=== PATIENT | female | born 1990 | race Caucasian/White ===

== ENCOUNTER 2016-10-09 12:31 | Inpatient (IN) | payer OTHER ==
[2016-10-09 13:58] LABS: Urine Bilirubin Negative (Negative); Urine Glucose Negative (Negative); Urine Nitrite Negative (Negative)
[2016-10-09 14:03] LABS: Hematocrit 43 % (35-47); Hemoglobin 14.2 g/dl (12.0-16.0); Mean Corpuscular HGB Conc 33 g/dl (31-36); Mean Corpuscular Hemoglobin 31 pg (27-31); Mean Corpuscular Volume 93 fL (80-97); Mean Platelet Volume 12 um3 (7.4-10.4); Red Cell Distribution Width 13 % (10.5-15); White Blood Count 5.4 10^3/ul (3.5-10.8)
[2016-10-09 14:17] LABS: Benzodiazepine Urine Screen None Detected (None Detect)
[2016-10-09 14:18] LABS: ALT 7 U/L (7-52); AST 19 U/L (13-39); Albumin 4.1 g/dL (3.2-5.2); Alkaline Phosphatase 33 U/L (34-104); Anion Gap 4 mmol/L (2-11); BUN/Creatinine Ratio 6.5 (8-20); Blood Urea Nitrogen 5 mg/dL (6-24); CO2 Carbon Dioxide 28 mmol/L (22-32); Calcium 8.9 mg/dL (8.6-10.3); Chloride 106 mmol/L (101-111); EGFR African American 115.6 (>60); EGFR Non-African American 89.9 (>60); Globulin 2.7 g/dL (2-4); Glucose 91 mg/dL (70-100); Potassium 4.1 mmol/L (3.5-5.0); Sodium 138 mmol/L (133-145); Total Protein 6.8 g/dL (6.4-8.9)
--- NOTE | 2016-10-09 14:26 | ED ---
Psychiatric Complaint - HPI Summary HPI Summary: Patient presents to ED with CC of SI and depression x 2 weeks. Hx of depression. She is followed closely by psychiatrist at [facility]. She currently take Latuda 120mg, gabapentin 300mg, Seroquil and Depakote 1000mg. She has had these symptoms before but last 2 weeks worse. Denies HI or self harm. Denies ETOH, drug use or smoking. - History Of Current Complaint Chief Complaint: [facility]entalHealth Time Seen by Provider: 10/09/16 12:46 Hx Obtained From: Patient ?: No Onset/Duration: Gradual Onset Timing: Constant Severity Initially: Moderate Severity Currently: Moderate Character: Depressed Associated Signs And Symptoms: Positive: Social Withdrawal, Social Isolation Has Suicidal: Reports: Thoughts - Risk Factor(s) Completed Suicide Risk Factors: Negative - Allergies/Home Medications Allergies/Adverse Reactions: Allergies Allergy/AdvReac Type Severity Reaction Status Date / Time Codeine Allergy Insomnia Verified 10/09/16 13:12 Oxycodone Allergy Insomnia Verified 10/09/16 13:12 Home Medications: Home Medications Lurasidone (NF) [Latuda (NF)] 120 mg PO BEDTIME 10/09/16 [History Confirmed ] PMH/Surg Hx/FS Hx/Imm Hx Previously Healthy: Yes Respiratory History: Reports: Hx Asthma - mild, occasional Psychiatric History: Reports: Hx Anxiety, Hx Depression, Hx Post Traumatic Stress Disorder, Hx Inpatient Treatment, Hx Community [facility] - [facility] , Hx Bipolar Disorder Denies: Hx Eating Disorder, Hx of Violent Episodes Against Others - Immunization History Date of Tetanus Vaccine: Up to date Date of Influenza Vaccine: Unknown Hx Pertussis Vaccination: No Immunizations Up to Date: Unable to Obtain/Confirm Infectious Disease History: No Infectious Disease History: Denies: Traveled Outside the US in Last 30 Days - Family History Known Family History: Positive: Other - Depression - Social History Occupation: Employed Full-time Lives: With Family Alcohol Use: Weekly Alcohol Amount: 8 drinks/weekend Hx Substance Use: No Substance Use Type: Reports: None Hx Tobacco Use: Yes Smoking Status (MU): Never Smoked Tobacco Type: Cigarettes Review of Systems Constitutional: Negative Eyes: Negative Cardiovascular: Negative Respiratory: Negative Positive: no symptoms reported, see HPI Musculoskeletal: Negative Skin: Negative Positive: Anxious, Depressed All Other Systems Reviewed And Are Negative: Yes Physical Exam Triage Information Reviewed: Yes Vital Signs On Initial Exam: Initial Vitals Temp Pulse Resp BP Pulse Ox 99.0 F 75 16 112/71 99 10/09/16 12:42 10/09/16 12:42 10/09/16 12:42 10/09/16 12:42 10/09/16 12:42 Vital Signs Reviewed: Yes Appearance: Positive: Well-Appearing, Well-Nourished Skin: Positive: Warm, Skin Color Reflects Adequate Perfusion Head/Face: Positive: Normal Head/Face Inspection Eyes: Positive: EOMI, GIULIANA, Conjunctiva Clear Neck: Positive: Supple, No Lymphadenopathy Respiratory/Lung Sounds: Positive: Clear to Auscultation, Breath Sounds Present Cardiovascular: Positive: Normal, RRR, Pulses are Symmetrical in both Upper and Lower Extremities Musculoskeletal: Positive: Strength/ROM Intact Neurological: Positive: Sensory/Motor Intact, Alert, Oriented to Person Place, Time, Speech Normal Psychiatric: Positive: Affect/Mood Appropriate, Anxious, Depressed AVPU Assessment: Alert - Murphy Coma Scale Coma Scale Total: 15 Diagnostics - Vital Signs Vital Signs Temp Pulse Resp BP Pulse Ox 10/09/16 13:11 99 F 16 112/71 98 10/09/16 12:42 99.0 F 16 112/71 99 - Laboratory Lab Results: Lab Results 10/09/16 10/09/16 Range/Units 13:39 13:55 WBC 5.4 (3.5-10.8) 10^3/ul RBC 4.60 (4.0-5.4) 10^6/ul Hgb 14.2 (12.0-16.0) g/dl Hct 43 (35-47) % MCV 93 (80-97) fL MCH 31 (27-31) pg MCHC 33 (31-36) g/dl RDW 13 (10.5-15) % Plt Count 142 L (150-450) 10^3/ul MPV 12 H (7.4-10.4) um3 Neut % (Auto) 57.8 (38-83) % Lymph % (Auto) 29.1 (25-47) % Archer % (Auto) 10.0 H (1-9) % Eos % (Auto) 2.5 (0-6) % Baso % (Auto) 0.6 (0-2) % Absolute Neuts (auto) 3.1 (1.5-7.7) 10^3/ul Absolute Lymphs (auto) 1.6 (1.0-4.8) 10^3/ul Absolute Monos (auto) 0.5 (0-0.8) 10^3/ul Absolute Eos (auto) 0.1 (0-0.6) 10^3/ul Absolute Basos (auto) 0 (0-0.2) 10^3/ul Absolute Nucleated RBC 0.01 10^3/ul Nucleated RBC % 0.1 Urine Color Yellow Urine Appearance Clear Urine pH 6.0 (5-9) Ur Specific [place] 1.012 (1.010-1.030) Urine Protein Negative (Negative) Urine Ketones Trace H (Negative) Urine Blood Negative (Negative) Urine Nitrate Negative (Negative) Urine Bilirubin Negative (Negative) Urine Urobilinogen Negative (Negative) Ur Leukocyte Esterase Negative (Negative) Urine Glucose Negative (Negative) Result Diagrams: 10/09/16 13:55 10/09/16 13:55 Lab Statement: Any lab studies that have been ordered have been reviewed, and results considered in the medical decision making process. Course/Dx - Course Course Of Treatment: Suicidal ideations with no plan. Patient denies drug use, ETOH or physical pain. OK for MHU - Differential Dx/Clinical Impression Differential Diagnosis/HQI/PQRI: Positive: Depression, Suicide Attempt, Suicidal Ideation, Suicidal Gesture Provider Diagnosis: Suicidal ideation, Depressed Discharge - Discharge Plan Condition: Stable Disposition: OTHER Discharge Disposition Comment: MHU evaluation. signed off at 2:45pm
[2016-10-09 14:42] LABS: Acetaminophen < 15 mcg/mL; Alcohol < 10 mg/dL (<10); Salicylate < 2.50 mg/dL (<30)
[2016-10-09 14:50] LABS: TSH (Thyroid Stimulating Horm) 0.86 mcIU/mL (0.34-5.60)
[2016-10-09] MEDS ORDERED: Acetaminophen TAB* 325 MG PO PRN (15:54)
[2016-10-09] MEDS ORDERED: Al Hydrox/Mg Hydrox/Simet LIQ* 30 ML UDC PO PRN (15:54)
[2016-10-09] MEDS: Gabapentin CAP(*) 300 MG PO SCH (20:54)
[2016-10-09] MEDS ORDERED: LURASIDONE 120 MG PO SCH (23:00)
[2016-10-10 08:20] LABS: Cholesterol 145 mg/dL; HDL Cholesterol 48.9 mg/dL; LDL Cholesterol 75 mg/dL; Triglycerides 104 mg/dL
[2016-10-10] MEDS: Gabapentin CAP(*) 300 MG PO SCH ×2 (09:17→21:01)
--- NOTE | 2016-10-10 13:36 | PN ---
MHU: Group Therapy Note - Service Type Service Type: 26265 Group Psychotherapy - Cognitive Behavioral Group Therapy ( CBT):Patient was attentive and participatory in CBT programming this morning, and remained in good behavioral control. Patient expressed positive insights regarding relevant treatment interventions and goals.
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
[2016-10-10] MEDS: LURASIDONE 20 MG PO SCH (17:13)
[2016-10-10] MEDS: CMC:Lurasidone (NF) 40 MG TAB PO SCH (17:13)
[2016-10-10] MEDS ORDERED: QUEtiapine TAB* 25 MG PO SCH (21:00)
[2016-10-10] MEDS: Divalproex ER TAB(*) 500 MG PO SCH ×2 (21:02)
[2016-10-11] MEDS: Gabapentin CAP(*) 300 MG PO SCH ×2 (08:10→20:16)
[2016-10-11] MEDS: CMC:Lurasidone (NF) 40 MG TAB PO SCH (08:11)
[2016-10-11] MEDS: LURASIDONE 20 MG PO SCH (08:11)
[2016-10-11] MEDS ORDERED: hydrOXYzine HCL TAB* 25 MG PO PRN (11:24)
--- NOTE | 2016-10-11 11:26 | PN ---
MHU: Group Therapy Note - Service Type Service Type: 30649 Group Psychotherapy - Cognitive Behavioral Group Therapy ( CBT):Patient was attentive and participatory in CBT programming this morning, and remained in good behavioral control. Patient expressed positive insights regarding relevant treatment interventions and goals. She is looking forward to discharge tomorrow, and describes feeling somewhat lethargic secondary to medicaitons.
[2016-10-11] MEDS ORDERED: QUEtiapine TAB* 25 MG PO PRN (11:27)
--- NOTE | 2016-10-11 12:59 | PN ---
Subjective - Subjective Subjective: Kayy reports she is "Tired and my heart is racing." She has been medication adherent and participating in groups. She reports sleeping "too much" last night, up to 12 hours. She reports her thoughts are "bland... nothing negative. " She had Latuda this morning with breakfast. She reports desire to nap but does not want to be dismissive of scheduled groups. She asks to be awakened for meals. She denies SI, endorses fatigue and decreased energy. Endorses anxiety/agitation. Objective - Appearance Appearance: Well Developed/Nourished Dysmorphic Features: Yes Hygiene: Normal Grooming: Well Kept - Behavior Psychomotor Activities: Abnormal-Decreased Exhibits Abnormal Movement: Yes - Attitude and Relatedness Attitude and Relatedness: Cooperative Eye Contact: Good - Speech Quality: Unpressured Latencies: Normal Quantity: Appropriate - Mood Patient's Decription of Mood: "Okay" - Affect Observed Affect: Depressed Affect Consistent with: Dysphoria - Thought Process Patient's Thought Process: Coherent, Incoherent Thought Content: No Passive Wish, No Suicidal Planning, No Homicidal Ideation, No Paranoid Ideation - Sensorium Experiencing Hallucinations: No, Sensorium is Clear Type of Hallucinations: Visual: No, Auditory: No, Command: No - Level of Consciousness Orientation: Yes Intact, Yes Orientated to Time, Yes Orientated to Place, Yes Orientated to Person - Impulse Control Impulse Control: Intact - Insight and Judgement Insight and Judgement: Good - Group Participation Particating in Group Activities: Yes - Medication Management Medication Management Adherence: Yes Assessment - Assessment Merits Inpatient Hospitalization: For Immediate Safety, For Stabilization, For Discharge Planning Clinical Impression: Kayy is a 26yo female with bipolar disorder. She typically presents in a manic state but is currently endorsing mixed or depressed state. She merits hospitalization for safety and stabalization. Discharge planning to include outpatient providers and Kayy's boyfriend, with whom she lives. Plan - Plan Treatment Plan: Name: KAYY MARTÍNEZ Birthdate: 1990 [id number] I would like to get another valproic acid level in the morning, as she had not had her dose when tested most recently. Will continue supportive milieu and psychoeducational groups. Will monitor for mood and thought content. Decrease observation to q30 minutes and allow daily staff pass. Will decrease latuda dose and encourage evening administration. Will add hydroxyzine for agitation/ anxiety and change quetiapine to prn to decrease hypersomnia. Her affect brightens when discussing potential for discharge tomorrow after meeting with boyfriend. Continued Medication Management: Consider Medication Medications: Current Medications Acetaminophen (Tylenol Tab*) 650 mg PO Q4H PRN PRN Reason: for pain; or Temp >101 F Last Admin: 10/10/16 19:39 Dose: 650 mg Al Hydrox/Mg Hydrox/Simethicone (Maalox Plus*) 30 ml PO Q4H PRN PRN Reason: INDIGESTION Divalproex Sodium (Depakote Er Tab(*)) 1,000 mg PO 2100 MAURI Last Admin: 10/10/16 21:02 Dose: 1,000 mg Gabapentin (Neurontin Cap(*)) 300 mg PO BID MAURI Last Admin: 10/11/16 08:10 Dose: 300 mg Hydroxyzine HCl (Atarax Tab*) 25 mg PO Q6H PRN PRN Reason: AGITATION/ANXIETY Lurasidone HCl (Latuda (Nf)) 80 mg PO 1700 MAURI Quetiapine Fumarate (Seroquel Tab*) 12.5 mg PO BEDTIME PRN PRN Reason: INSOMNIA - Discharge Plan Discharge Plan: Outpatient Follow Up Outpatient Program: Counseling/Psych Services at [facility]
[2016-10-11] MEDS: Divalproex ER TAB(*) 500 MG PO SCH (20:16)
[2016-10-12] MEDS: Gabapentin CAP(*) 300 MG PO SCH (07:37)
[2016-10-12 07:46] VITALS: BP 109/68
--- NOTE | 2016-10-12 12:02 | DS ---
DISCHARGE SUMMARY: DATE OF ADMISSION: 10/09/16 DATE OF DISCHARGE: 10/12/16 SUPERVISING PSYCHIATRIST: Dr. Arie Webb * (DICTATED BY GRAYSON STEWART NP) DISCHARGE DIAGNOSES: [place] I: Bipolar I disorder, most recent episode depressed and posttraumatic stress disorder. [place] II: Deferred. [place] III: No active medical problem. [place] IV: Mild stressors related to chronic mental illness and pressures of graduate studies. [place] V: 55. CONDITION AT THE TIME OF DISCHARGE: Improved. Makenzie reports she is "less anxious and more energetic." She is looking forward to structuring her downtime over the weekend. She has made a calendar schedule for her day today. She is looking for books to read for pleasure. She plans on going to yoga class and spend time with her partner, [place]. 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 Makenzie denies depressed mood. She denies suicidal ideation. She denies low energy and denies hypomania. She is notified that her valproic acid level this morning was 0.9 and that this is in therapeutic range. She requests that her new prescriptions be sent to [facility], [facility]. MENTAL STATUS EXAM: Makenzie is well groomed, wearing casual workout clothing. She is pleasant and cooperative. She is talkative and answers questions fully in a calm manner. She is alert and oriented x3. She has a bright affect and good eye contact. Her speech is soft and articulate and concentration is good. Her memory is 3/3. Mood is "a little nervous." Thought process is logical, coherent, goal- directed. Thought content is negative for SI or HI. She denies AH or VH. She denies rituals, obsessions, or delusions. Her insight is good, her judgment is good, and fund of knowledge is excellent. DISCHARGE INSTRUCTIONS: Given to the patient. MEDICATIONS: Are as follows: 1. Gabapentin 300 mg p.o. b.i.d. 2. Depakote ER 1000mg p.o. qhs 3. Latuda 80 mg p.o daily with dinner. 4. Quetiapine 12.5 mg p.o. at bedtime p.r.n. insomnia. DIET: Regular. ACTIVITY: Ambulation as tolerated. Tobacco cessation is not applicable as client does not smoke or use tobacco products. There are no pending labs or diagnostic studies at the time of discharge. HOSPITAL COURSE: A. Reason for admission: The patient was brought to the emergency room by her boyfriend after being seen by her outpatient therapist at [facility]. She reported increased depressed mood over the past 2 weeks with suicidal ideation with plan and intent. She was admitted on voluntary status for emergency safety and stabilization. B. Psychiatric treatment rendered: Makenzie was admitted to the behavioral health unit on voluntary status. She was full code status. She was placed on 15-minute checks for safety. She participated in supportive milieu, individual staff sessions, and psychoeducation groups. She was given med education in relation to her prescription for Latuda in that she needs to take this with at least 350 calories in order for 100% efficacy. She took a dose during the daytime and this caused excessive daytime sedation, her next dose will be this evening at dinner. The dose was titrated down from 120 mg to 80 mg. All other outpatient medications were unchanged. Makenzie was safe on all checks and denies suicidal ideation. She presents as euthymic and appears ready for discharge. She is forward thinking. cyber ops planner myself, her boyfriend, and the patient met prior to her leaving the unit to consolidate safe discharge planning and safety monitoring over the weekend. Makenzie has a history of hospitalizations and evidence of seeking outpatient and inpatient resources as needed for her safety and general mental health. GRAYSON STEWART NP [id number]/[facility] #: [id number] [facility]
[2016-10-12] MEDS ORDERED: CMCS: Lurasidone (NF) 40 MG TAB PO SCH (17:00)
== END 2016-10-12 12:35 | disposition home or self-care (01) | DRG 885 ==
LOC: ED 12:31 → BSU 15:54
PROVIDERS: ADMIT Psychiatry & Neurology Psychiatry; ATTEND Psychiatry & Neurology Psychiatry
PROC: GZHZZZZ Group Psychotherapy (ICD-10-PCS; principal; 2016-10-10)
DX: F31.9 Bipolar disorder, unspecified (principal); R45.851 Suicidal ideations; J45.909 Unspecified asthma, uncomplicated; F43.10 Post-traumatic stress disorder, unspecified; F41.9 Anxiety disorder, unspecified; R40.2412 Glasgow coma scale score 13-15, at arrival to emergency department; Z91.410 Personal history of adult physical and sexual abuse; Z88.5 Allergy status to narcotic agent; Z81.8 Family history of other mental and behavioral disorders; Z72.89 Other problems related to lifestyle
CPT/HCPCS: 36415; 80053; 80061; 80164; 80307; 80320; 80329; 81003; 83036; 84443; 84702; 85025; 90853; 99222; 99231; 99238; A9270-GY; G0480

== ENCOUNTER 2016-10-24 13:31 | Inpatient (IN) | payer OTHER ==
[2016-10-24 14:30] LABS: Hematocrit 41 % (35-47); Hemoglobin 13.7 g/dl (12.0-16.0); Mean Corpuscular HGB Conc 34 g/dl (31-36); Mean Corpuscular Hemoglobin 31 pg (27-31); Mean Corpuscular Volume 91 fL (80-97); Mean Platelet Volume 12 um3 (7.4-10.4); Red Blood Count 4.47 10^6/ul (4.0-5.4); Red Cell Distribution Width 13 % (10.5-15); White Blood Count 5.5 10^3/ul (3.5-10.8)
[2016-10-24 14:32] LABS: Urine Bilirubin Negative (Negative); Urine Glucose Negative (Negative); Urine Nitrite Negative (Negative)
[2016-10-24 14:49] LABS: Benzodiazepine Urine Screen None Detected (None Detect)
[2016-10-24 14:52] LABS: ALT 12 U/L (7-52); AST 22 U/L (13-39); Albumin 4.1 g/dL (3.2-5.2); Alkaline Phosphatase 28 U/L (34-104); Anion Gap 6 mmol/L (2-11); BUN/Creatinine Ratio 9.7 (8-20); Blood Urea Nitrogen 7 mg/dL (6-24); CO2 Carbon Dioxide 27 mmol/L (22-32); Calcium 8.9 mg/dL (8.6-10.3); Chloride 104 mmol/L (101-111); EGFR Non-African American 97.2 (>60); Globulin 2.4 g/dL (2-4); Glucose 107 mg/dL (70-100); Potassium 3.6 mmol/L (3.5-5.0); Sodium 137 mmol/L (133-145); Total Protein 6.5 g/dL (6.4-8.9)
[2016-10-24 15:35] LABS: Acetaminophen < 15 mcg/mL; Alcohol < 10 mg/dL (<10); Salicylate < 2.50 mg/dL (<30)
[2016-10-24 15:45] LABS: TSH (Thyroid Stimulating Horm) 0.89 mcIU/mL (0.34-5.60)
--- NOTE | 2016-10-24 21:08 | ED ---
Bola Montano Angela, scribed for Kody Decker MD on 10/24/16 at 1410 . Psychiatric Complaint - HPI Summary HPI Summary: 26 y.o female with PMHx of bipolar presents to the ED via EMS from her psychiatrist Ana Martin's office c/o SI with a plan. Pt notes she was admitted for 2 weeks in this facility. Pt reports she is currently on medications but didn't take Depakote for a couple of days as she ran out of it. She states that Latuda may not be working well for her. Pt denies any drug or alcohol use today. - History Of Current Complaint Chief Complaint: EDMentalHealth Time Seen by Provider: 10/24/16 13:37 Hx Obtained From: Patient Character: Manic Aggravating Factor(s): Nothing Alleviating Factor(s): Nothing Has Suicidal: Reports: Thoughts, With A Plan - Allergies/Home Medications Allergies/Adverse Reactions: Allergies Allergy/AdvReac Type Severity Reaction Status Date / Time Codeine Allergy Intermediate Edema Verified 10/10/16 07:25 Oxycodone Allergy Intermediate Edema Verified 10/10/16 07:25 Home Medications: Home Medications QUEtiapine TAB* [SEROquel TAB*] 12.5 mg PO BEDTIME 10/24/16 [History Confirmed 10/24/16] hydrOXYzine HCL TAB* [Atarax 25 MG TAB*] 25 mg PO DAILY PRN 10/24/16 [History Confirmed 10/24/16] PMH/Surg Hx/FS Hx/Imm Hx Respiratory History: Reports: Hx Asthma - mild, occasional Sensory History: Denies: Hx Contacts or Glasses, Hx Hearing Aid Opthamlomology History: Denies: Hx Contacts or Glasses Psychiatric History: Reports: Hx Anxiety, Hx Depression, Hx Post Traumatic Stress Disorder, Hx Inpatient Treatment, Hx Community Mental Health Tx, Hx Bipolar Disorder Denies: Hx Eating Disorder, Hx of Violent Episodes Against Others - Immunization History Date of Tetanus Vaccine: Up to date Date of Influenza Vaccine: Unknown - Family History Known Family History: Positive: Other - Depression - Social History Alcohol Use: Weekly Alcohol Amount: about 8 beers on the weekend Hx Substance Use: No Substance Use Type: Reports: None Hx Tobacco Use: Yes Smoking Status (MU): Never Smoked Tobacco Type: Cigarettes Amount Used/How Often: pt has not smoked or used any tobacco products in the last 30 days. Have You Smoked in the Last Year: No Review of Systems Negative: Fever Positive: Other - Suicidal ideations with a plan All Other Systems Reviewed And Are Negative: Yes Physical Exam - Summary Physical Exam Summary: General: well-appearing, no pain distress Skin: warm, color reflects adequate perfusion, dry Head: normal Eyes: EOMI, GIULIANA ENT: normal Neck: supple, nontender Respiratory: CTA, breath sounds present Cardiovascular: RRR Abdomen: soft, nontender Bowel: present Musculoskeletal: normal, strength/ROM intact Neurological: normal, sensory/motor intact, A&O x3 Psychological: affect/mood appropriate Triage Information Reviewed: Yes Vital Signs On Initial Exam: Vital Signs Temp Pulse Resp BP Pulse Ox 10/24/16 13:43 97.9 F 70 18 104/66 98 Vital Signs Reviewed: Yes Diagnostics - Vital Signs Vital Signs Temp Pulse Resp BP Pulse Ox 10/24/16 16:01 98.5 F 59 16 104/56 99 10/24/16 13:43 97.9 F 70 18 104/66 98 - Laboratory Lab Results: Lab Results 10/24/16 10/24/16 10/24/16 Range/Units 14:07 14:07 14:07 WBC 5.5 (3.5-10.8) 10^3/ul RBC 4.47 (4.0-5.4) 10^6/ul Hgb 13.7 (12.0-16.0) g/dl Hct 41 (35-47) % MCV 91 (80-97) fL MCH 31 (27-31) pg MCHC 34 (31-36) g/dl RDW 13 (10.5-15) % Plt Count 138 L (150-450) 10^3/ul MPV 12 H (7.4-10.4) um3 Neut % (Auto) 54.5 (38-83) % Lymph % (Auto) 36.0 (25-47) % Culberson % (Auto) 7.5 (1-9) % Eos % (Auto) 1.2 (0-6) % Baso % (Auto) 0.8 (0-2) % Absolute Neuts (auto) 3.0 (1.5-7.7) 10^3/ul Absolute Lymphs (auto) 2.0 (1.0-4.8) 10^3/ul Absolute Monos (auto) 0.4 (0-0.8) 10^3/ul Absolute Eos (auto) 0.1 (0-0.6) 10^3/ul Absolute Basos (auto) 0 (0-0.2) 10^3/ul Absolute Nucleated RBC 0 10^3/ul Nucleated RBC % 0 Sodium 137 (133-145) mmol/L Potassium 3.6 (3.5-5.0) mmol/L Chloride 104 (101-111) mmol/L Carbon Dioxide 27 (22-32) mmol/L Anion Gap 6 (2-11) mmol/L BUN 7 (6-24) mg/dL Creatinine 0.72 (0.51-0.95) mg/dL Est GFR ( Amer) 125.0 (>60) Est GFR (Non-Af Amer) 97.2 (>60) BUN/Creatinine Ratio 9.7 (8-20) Glucose 107 H (70-100) mg/dL Calcium 8.9 (8.6-10.3) mg/dL Total Bilirubin 0.60 (0.2-1.0) mg/dL AST 22 (13-39) U/L ALT 12 (7-52) U/L Alkaline Phosphatase 28 L (34-104) U/L Total Protein 6.5 (6.4-8.9) g/dL Albumin 4.1 (3.2-5.2) g/dL Globulin 2.4 (2-4) g/dL Albumin/Globulin Ratio 1.7 (1-3) TSH 0.89 (0.34-5.60) mcIU/mL Beta HCG, Quant < 0.60 mIU/mL Urine Color Yellow Urine Appearance Clear Urine pH 7.0 (5-9) Ur Specific Hunt 1.010 (1.010-1.030) Urine Protein Negative (Negative) Urine Ketones Trace H (Negative) Urine Blood Negative (Negative) Urine Nitrate Negative (Negative) Urine Bilirubin Negative (Negative) Urine Urobilinogen Negative (Negative) Ur Leukocyte Esterase Negative (Negative) Urine Glucose Negative (Negative) Salicylates < 2.50 (<30) mg/dL Urine Opiates Screen (None Detect) Acetaminophen < 15 mcg/mL Ur Barbiturates Screen (None Detect) Valproic Acid 55.0 (50-100) mcg/mL Ur Phencyclidine Scrn (None Detect) Ur Amphetamines Screen (None Detect) U Benzodiazepines Scrn (None Detect) Urine Cocaine Screen (None Detect) U Cannabinoids Screen (None Detect) Serum Alcohol < 10 (<10) mg/dL 10/24/16 Range/Units 14:07 WBC (3.5-10.8) 10^3/ul RBC (4.0-5.4) 10^6/ul Hgb (12.0-16.0) g/dl Hct (35-47) % MCV (80-97) fL MCH (27-31) pg MCHC (31-36) g/dl RDW (10.5-15) % Plt Count (150-450) 10^3/ul MPV (7.4-10.4) um3 Neut % (Auto) (38-83) % Lymph % (Auto) (25-47) % Culberson % (Auto) (1-9) % Eos % (Auto) (0-6) % Baso % (Auto) (0-2) % Absolute Neuts (auto) (1.5-7.7) 10^3/ul Absolute Lymphs (auto) (1.0-4.8) 10^3/ul Absolute Monos (auto) (0-0.8) 10^3/ul Absolute Eos (auto) (0-0.6) 10^3/ul Absolute Basos (auto) (0-0.2) 10^3/ul Absolute Nucleated RBC 10^3/ul Nucleated RBC % Sodium (133-145) mmol/L Potassium (3.5-5.0) mmol/L Chloride (101-111) mmol/L Carbon Dioxide (22-32) mmol/L Anion Gap (2-11) mmol/L BUN (6-24) mg/dL Creatinine (0.51-0.95) mg/dL Est GFR ( Amer) (>60) Est GFR (Non-Af Amer) (>60) BUN/Creatinine Ratio (8-20) Glucose (70-100) mg/dL Calcium (8.6-10.3) mg/dL Total Bilirubin (0.2-1.0) mg/dL AST (13-39) U/L ALT (7-52) U/L Alkaline Phosphatase (34-104) U/L Total Protein (6.4-8.9) g/dL Albumin (3.2-5.2) g/dL Globulin (2-4) g/dL Albumin/Globulin Ratio (1-3) TSH (0.34-5.60) mcIU/mL Beta HCG, Quant mIU/mL Urine Color Urine Appearance Urine pH (5-9) Ur Specific Hunt (1.010-1.030) Urine Protein (Negative) Urine Ketones (Negative) Urine Blood (Negative) Urine Nitrate (Negative) Urine Bilirubin (Negative) Urine Urobilinogen (Negative) Ur Leukocyte Esterase (Negative) Urine Glucose (Negative) Salicylates (<30) mg/dL Urine Opiates Screen None detected (None Detect) Acetaminophen mcg/mL Ur Barbiturates Screen None detected (None Detect) Valproic Acid (50-100) mcg/mL Ur Phencyclidine Scrn None detected (None Detect) Ur Amphetamines Screen None detected (None Detect) U Benzodiazepines Scrn None detected (None Detect) Urine Cocaine Screen None detected (None Detect) U Cannabinoids Screen None detected (None Detect) Serum Alcohol (<10) mg/dL Result Diagrams: 10/24/16 14:07 10/24/16 14:07 Lab Statement: Any lab studies that have been ordered have been reviewed, and results considered in the medical decision making process. Course/Dx - Course Course Of Treatment: ADMIT TO MHU STABLE. - Differential Dx/Clinical Impression Provider Diagnosis: Mental health problem Discharge - Discharge Plan Condition: Stable Disposition: PSYCHIATRIC FACILITY-[facility] The documentation as recorded by the Bola patel Angela accurately reflects the service I personally performed and the decisions made by , Kody Decker MD.
[2016-10-24] MEDS ORDERED: hydrOXYzine HCL TAB* 25 MG PO PRN (21:18)
[2016-10-24] MEDS ORDERED: QUEtiapine TAB* 25 MG ONE (21:46)
[2016-10-24] MEDS ORDERED: Gabapentin CAP(*) 300 MG ONE (21:46)
[2016-10-24] MEDS ORDERED: Divalproex ER TAB(*) 500 MG ONE (21:46)
[2016-10-24] MEDS: Divalproex ER TAB(*) 500 MG PO SCH (21:53)
[2016-10-24] MEDS: QUEtiapine TAB* 25 MG PO SCH (21:53)
[2016-10-24] MEDS: Gabapentin CAP(*) 300 MG PO SCH (22:17)
[2016-10-25] MEDS: Gabapentin CAP(*) 300 MG PO SCH ×2 (08:46→21:09)
[2016-10-25] MEDS ORDERED: QUEtiapine TAB* 25 MG PO SCH (09:00)
--- NOTE | 2016-10-25 13:13 | PN ---
MHU: Group Therapy Note - Service Type Service Type: 40251 Group Psychotherapy - Cognitive Behavioral Group Therapy ( CBT):Patient was attentive and participatory in CBT programming this morning, and remained in good behavioral control. Patient expressed positive insights regarding relevant treatment interventions and goals.
--- NOTE | 2016-10-25 15:16 | PN ---
MHU: Group Therapy Note - Service Type Service Type: [id number] Psychotherapy - Individual Psychotherapy Note: Makenzie disclosed that she had attempted to kill herself today by drinking water. She reports vomitting three times, acknowledging that it was an ineffective way to kill herself. She disclosed this after several minutes of conversation addressing possible psychosocial stressors. Makenzie simply describes worsening depression in the past week, but does not provide any causitive factors, other than difficulty initiating sleep and having to move to a new apartment. She describes difficulty with concentration and timely completion of academic work, but does not attribute these as being related to thoughts of suicide. 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 Makenzie is upset about her readmission, but was cooperative with efforts to treat and assess.
[2016-10-25] MEDS ORDERED: LURASIDONE 80 MG PO SCH ×2 (17:00)
[2016-10-25] MEDS: QUEtiapine TAB* 25 MG PO SCH (21:08)
[2016-10-25] MEDS: Divalproex ER TAB(*) 500 MG PO SCH (21:09)
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
[2016-10-26] MEDS: Gabapentin CAP(*) 300 MG PO SCH ×2 (08:29→20:42)
--- NOTE | 2016-10-26 11:32 | PN ---
MHU: Group Therapy Note - Service Type Service Type: [id number] Group Psychotherapy - Cognitive Behavioral Group Therapy ( CBT):Patient was attentive and participatory in CBT programming this morning, and remained in good behavioral control. Patient expressed positive insights regarding relevant treatment interventions and goals.
--- NOTE | 2016-10-26 15:00 | PN ---
Subjective - Subjective Service Type: 84333 Hosp care 25 min moderate complexity Subjective: Patient reports mild improvement in energy. She continues to endorse helplessness and depressed mood. She requests to take latuda later in the evening as she was too tired to visit with her boyfriend last evening. She denied thoughts of harming self while on the unit. Her mother visited shortly after interview with typewriter mechanic. While exiting unit, her mother notified staff that Kayy expressed wanting to "Find anyway" to harm herself while on the unit. Objective - Appearance Appearance: Thin Framed Dysmorphic Features: Yes Hygiene: Normal Grooming: Fairly Well Kept - Behavior Psychomotor Activities: Normal Exhibits Abnormal Movement: No - Attitude and Relatedness Attitude and Relatedness: Cooperative Eye Contact: Good - Speech Quality: Unpressured Latencies: Short Quantity: Appropriate - Mood Patient's Decription of Mood: "hopeless" - Affect Observed Affect: Depressed Affect Consistent with: Dysphoria - Thought Process Patient's Thought Process: Impoverished Thought Content: Yes Passive Wish, Yes Suicidal Planning, No Homicidal Ideation, No Paranoid Ideation - Sensorium Experiencing Hallucinations: No, Sensorium is Clear Type of Hallucinations: Visual: No, Auditory: No, Command: No - Level of Consciousness Level of Consciousness: Alert Orientation: Yes Intact, Yes Orientated to Time, Yes Orientated to Place, Yes Orientated to Person - Impulse Control Impulse Control: Impaired - Insight and Judgement Insight and Judgement: Poor - Group Participation Particating in Group Activities: Yes - Medication Management Medication Management Adherence: Yes Assessment - Assessment Merits Inpatient Hospitalization: For Immediate Safety, For Stabilization Inpatient DSM-IV Dx: bipolar I d/o; PTSD Clinical Impression: 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 She is demonstrating depressive symptoms with active SI. Patient expresses plans to harm herself while on the unit and at work. Plan - Plan Treatment Plan: Name: KAYY MARTÍNEZ Birthdate: 1990 [id number] Continue constant observation while awake. Decrease Latuda to 40mg due to oversedation. Consider changing to quetiapine XL for better mood stabilization. Continued Medication Management: Consider Medication Medications: Current Medications Divalproex Sodium (Depakote Er Tab(*)) 1,000 mg PO BEDTIME [facility] Last Admin: 10/25/16 21:09 Dose: 1,000 mg Gabapentin (Neurontin Cap(*)) 300 mg PO BID [facility] Last Admin: 10/26/16 08:29 Dose: 300 mg Hydroxyzine HCl (Atarax Tab*) 25 mg PO DAILY PRN PRN Reason: AGITATION/ANXIETY Last Admin: 10/25/16 12:03 Dose: 25 mg Lurasidone HCl (Latuda (Nf)) 40 mg PO BEDTIME [facility] Quetiapine Fumarate (Seroquel Tab*) 12.5 mg PO BEDTIME [facility] Last Admin: 10/25/16 21:08 Dose: 12.5 mg - Discharge Plan Discharge Plan: Outpatient Follow Up Outpatient Program: Counseling/Psych Services at [facility]
[2016-10-26] MEDS: Divalproex ER TAB(*) 500 MG PO SCH (20:42)
[2016-10-26] MEDS: QUEtiapine TAB* 25 MG PO SCH (20:42)
[2016-10-26] MEDS: LURASIDONE 80 MG PO SCH (20:43)
[2016-10-27] MEDS: Gabapentin CAP(*) 300 MG PO SCH ×2 (08:20→20:05)
[2016-10-27] MEDS: Divalproex ER TAB(*) 500 MG PO SCH (20:04)
[2016-10-27] MEDS: QUEtiapine TAB* 25 MG PO SCH (20:05)
[2016-10-27] MEDS: LURASIDONE 80 MG PO SCH (20:08)
[2016-10-28] MEDS: Gabapentin CAP(*) 300 MG PO SCH ×2 (09:14→20:31)
--- NOTE | 2016-10-28 13:49 | PN ---
Subjective - Subjective Service Type: 48857 Hosp care 15 min low complexity Subjective: Patient affect noted to be broad. She reports experiencing SI with planning on Saturday. She reports some fleeting SI yesterday, but denies SI today. She is sleeping well and appetite is wnl. She requests a sweater to warm up and requests she not be followed everywhere. Patient feels safe on the unit and reports she will seek out staff if SI recurs. Patient 1:1 will be d/c'd. Objective - Appearance Appearance: Thin Framed Dysmorphic Features: No Hygiene: Normal Grooming: Fairly Well Kept - Behavior Psychomotor Activities: Normal Exhibits Abnormal Movement: No - Attitude and Relatedness Attitude and Relatedness: Cooperative Eye Contact: Fair - Speech Quality: Unpressured Latencies: Normal Quantity: Terse - Mood Patient's Decription of Mood: "Okay" - Affect Observed Affect: Tense Affect Consistent with: Dysphoria - Thought Process Patient's Thought Process: Coherent Thought Content: No Passive Wish, No Suicidal Planning, No Homicidal Ideation, No Paranoid Ideation - Sensorium Experiencing Hallucinations: No, Sensorium is Clear Type of Hallucinations: Visual: No, Auditory: No, Command: No - Level of Consciousness Level of Consciousness: Alert Orientation: Yes Intact, Yes Orientated to Time, Yes Orientated to Place, Yes Orientated to Person - Impulse Control Impulse Control: Intact - Insight and Judgement Insight and Judgement: Poor - Group Participation Particating in Group Activities: Yes - Medication Management Medication Management Adherence: Yes Assessment - Assessment Merits Inpatient Hospitalization: For Immediate Safety, For Stabilization Inpatient DSM-IV Dx: bipolar I d/o; PTSD Plan - Plan Treatment Plan: Name: KAYY MARTÍNEZ Birthdate: 1990 [id number] 1. Continue remaining mx as currently ordered. Medications: Current Medications Divalproex Sodium (Depakote Er Tab(*)) 1,000 mg PO BEDTIME [facility] Last Admin: 10/27/16 20:04 Dose: 1,000 mg Gabapentin (Neurontin Cap(*)) 300 mg PO BID [facility] Last Admin: 10/28/16 09:14 Dose: 300 mg Hydroxyzine HCl (Atarax Tab*) 25 mg PO DAILY PRN PRN Reason: AGITATION/ANXIETY Last Admin: 10/25/16 12:03 Dose: 25 mg Lurasidone HCl (Latuda (Nf)) 40 mg PO BEDTIME [facility] Last Admin: 10/27/16 20:08 Dose: 40 mg Quetiapine Fumarate (Seroquel Tab*) 12.5 mg PO BEDTIME [facility] Last Admin: 10/27/16 20:05 Dose: 12.5 mg - Discharge Plan Discharge Plan: Outpatient Follow Up
[2016-10-28] MEDS: Divalproex ER TAB(*) 500 MG PO SCH (20:31)
[2016-10-28] MEDS: QUEtiapine TAB* 25 MG PO SCH (20:32)
[2016-10-28] MEDS: LURASIDONE 80 MG PO SCH (20:42)
[2016-10-29] MEDS: Gabapentin CAP(*) 300 MG PO SCH ×2 (08:30→21:55)
--- NOTE | 2016-10-29 11:51 | PN ---
MHU: Group Therapy Note - Service Type Service Type: [id number] Group Psychotherapy - Cognitive Behavioral Group Therapy ( CBT):Patient was attentive and participatory in CBT programming this morning, and remained in good behavioral control. Patient expressed positive insights regarding relevant treatment interventions and goals.
[2016-10-29] MEDS ORDERED: Gabapentin CAP(*) 300 MG PO PRN (14:40)
--- NOTE | 2016-10-29 15:54 | PN ---
Subjective - Subjective Subjective: Patient reports increase in agitation and feeling more aggravated. She inquires about being in a current mixed state. She states she was meditating the other day and "felt at one with everyone on the psych unit." She states this was odd for her. She states "I don't feel depressed" and expresses concern about vulnerability if given criticism. She reports adequate sleep except for a nightmare on saturday night. She describes being placed in a cage with rats by nursing staff. She denies SI since saturday. She reports this was a vague fleeting thought and no longer active. Objective - Appearance Appearance: Well Developed/Nourished Dysmorphic Features: Yes Hygiene: Normal Grooming: Well Kept - Behavior Psychomotor Activities: Normal Exhibits Abnormal Movement: No - Attitude and Relatedness Attitude and Relatedness: Cooperative Eye Contact: Good - Speech Quality: Unpressured Latencies: Normal Quantity: Appropriate - Mood Patient's Decription of Mood: aggravated - Affect Observed Affect: Depressed Affect Consistent with: Dysphoria - Thought Process Patient's Thought Process: Coherent, Goal Directed Thought Content: No Passive Wish, No Suicidal Planning, No Homicidal Ideation, No Paranoid Ideation - Sensorium Experiencing Hallucinations: No, Sensorium is Clear Type of Hallucinations: Visual: No, Auditory: No, Command: No - Level of Consciousness Level of Consciousness: Alert Orientation: Yes Intact, Yes Orientated to Time, Yes Orientated to Place, Yes Orientated to Person - Impulse Control Impulse Control: Intact - Insight and Judgement Insight and Judgement: Good - Group Participation Particating in Group Activities: Yes - Medication Management Medication Management Adherence: Yes Assessment - Assessment Merits Inpatient Hospitalization: For Immediate Safety, For Stabilization, Consolidate Improvements, For Discharge Planning Inpatient DSM-IV Dx: bipolar I d/o; PTSD Clinical Impression: 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 She returned to [facility] shortly after discharge the end of september with increasing SI. She reports improved mood but continued agitation. Will increase gabapentin and include outpatient providers in discharge planning. Plan - Plan Treatment Plan: Name: KAYY MARTÍNEZ Birthdate: 1990 [id number] Increase gabapentin to add daily prn dose for agitation/anxiety. Message left with outpatient psychiatrist, Dr Stafford. Will continue q15min checks for safety and re-evaluate during treatment team in the morning. Continued Medication Management: Consider Medication Medications: Current Medications Divalproex Sodium (Depakote Er Tab(*)) 1,000 mg PO BEDTIME [facility] Last Admin: 10/28/16 20:31 Dose: 1,000 mg Gabapentin (Neurontin Cap(*)) 300 mg PO BID [facility] Last Admin: 10/29/16 08:30 Dose: 300 mg Gabapentin (Neurontin Cap(*)) 300 mg PO DAILY PRN PRN Reason: AGITATION/ANXIETY Last Admin: 10/29/16 14:50 Dose: 300 mg Hydroxyzine HCl (Atarax Tab*) 25 mg PO DAILY PRN PRN Reason: AGITATION/ANXIETY Last Admin: 10/25/16 12:03 Dose: 25 mg Lurasidone HCl (Latuda (Nf)) 40 mg PO BEDTIME [facility] Last Admin: 10/28/16 20:42 Dose: 40 mg Quetiapine Fumarate (Seroquel Tab*) 12.5 mg PO BEDTIME [facility] Last Admin: 10/28/16 20:32 Dose: 12.5 mg - Discharge Plan Discharge Plan: Outpatient Follow Up Outpatient Program: Counseling/Psych Services at [place]
[2016-10-29] MEDS: QUEtiapine TAB* 25 MG PO SCH (21:55)
[2016-10-29] MEDS: Divalproex ER TAB(*) 500 MG PO SCH (21:55)
[2016-10-29] MEDS: LURASIDONE 80 MG PO SCH (21:56)
[2016-10-30] MEDS: Gabapentin CAP(*) 300 MG PO SCH ×2 (09:10→20:09)
--- NOTE | 2016-10-30 15:09 | PN ---
Subjective - Subjective Subjective: Patient reports improved mood and energy. She endorses sleeping well last night. She denies agitation or feeling "chaos" around her. She reports having a to-do list for herself when she returns to work and that this is not overwhelming. Patient denies SI, AH or intrusive thoughts. She expresses feeling ready for discharge tomorrow. Objective - Appearance Appearance: Well Developed/Nourished Dysmorphic Features: No Hygiene: Normal Grooming: Well Kept - Behavior Psychomotor Activities: Normal Exhibits Abnormal Movement: No - Attitude and Relatedness Attitude and Relatedness: Cooperative Eye Contact: Good - Speech Quality: Unpressured Latencies: Normal Quantity: Appropriate - Mood Patient's Decription of Mood: "Good" - Affect Observed Affect: Non-labile Affect Consistent with: Euthymia - Thought Process Patient's Thought Process: Coherent, Goal Directed Thought Content: No Passive Wish, No Suicidal Planning, No Homicidal Ideation, No Paranoid Ideation - Sensorium Experiencing Hallucinations: No, Sensorium is Clear Type of Hallucinations: Visual: No, Auditory: No, Command: No - Level of Consciousness Level of Consciousness: Alert Orientation: Yes Intact, Yes Orientated to Time, Yes Orientated to Place, Yes Orientated to Person - Impulse Control Impulse Control: Intact - Insight and Judgement Insight and Judgement: Good - Group Participation Particating in Group Activities: Yes - Medication Management Medication Management Adherence: Yes Assessment - Assessment Merits Inpatient Hospitalization: For Immediate Safety, Consolidate Improvements , For Discharge Planning, Pending Safe DC Plan Inpatient DSM-IV Dx: bipolar I d/o; PTSD Clinical Impression: 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 She [place] [facility] [place] discharge the end of september with increasing SI. She reports improved mood and agitation. Will include outpatient providers in discharge planning. Message left with her psychiatrist at [facility]. Plan - Plan Treatment Plan: Name: KAYY MARTÍNEZ Birthdate: 1990 [id number] Continue current medications. Decrease to q30min checks for safety and allow staff pass. Continue to monitor for mood and thought process. Continued Medication Management: Consider Medication Medications: Current Medications Divalproex Sodium (Depakote Er Tab(*)) 1,000 mg PO BEDTIME [facility] Last Admin: 10/29/16 21:55 Dose: 1,000 mg Gabapentin (Neurontin Cap(*)) 300 mg PO BID [facility] Last Admin: 10/30/16 09:10 Dose: 300 mg Gabapentin (Neurontin Cap(*)) 300 mg PO DAILY PRN PRN Reason: AGITATION/ANXIETY Last Admin: 10/29/16 14:50 Dose: 300 mg Hydroxyzine HCl (Atarax Tab*) 25 mg PO DAILY PRN PRN Reason: AGITATION/ANXIETY Last Admin: 10/25/16 12:03 Dose: 25 mg Lurasidone HCl (Latuda (Nf)) 40 mg PO BEDTIME [facility] Last Admin: 10/29/16 21:56 Dose: 40 mg Quetiapine Fumarate (Seroquel Tab*) 12.5 mg PO BEDTIME [facility] Last Admin: 10/29/16 21:55 Dose: 12.5 mg - Discharge Plan Discharge Plan: Outpatient Follow Up Outpatient Program: Counseling/Psych Services at [place]
[2016-10-30] MEDS: Divalproex ER TAB(*) 500 MG PO SCH (20:08)
[2016-10-30] MEDS: QUEtiapine TAB* 25 MG PO SCH (20:09)
[2016-10-30] MEDS: LURASIDONE 80 MG PO SCH (20:10)
[2016-10-31 08:22] VITALS: BP 102/58
[2016-10-31] MEDS: Gabapentin CAP(*) 300 MG PO SCH (08:32)
--- NOTE | 2016-11-01 15:51 | DS ---
CC: Dr. Stafford at [facility] * DISCHARGE SUMMARY: DATE OF ADMISSION: 10/24/16 DATE OF DISCHARGE: 10/31/16 SUPERVISING PSYCHIATRIST: Dr. Arie Webb * (DICTATED BY GRAYSON STEWART NP ) DISCHARGE DIAGNOSES: [place] I: Bipolar I disorder, most recent episode depressed, posttraumatic stress disorder. [place] II: None. [place] III: No active medical problems. [place] IV: Moderate stressors related to graduate studies. [place] V: 60. CONDITION AT THE TIME OF DISCHARGE: Improved. Makenzie reports much improvement in mood over the past few days. She states she is "happy." She reports she has been sleeping well and has adequate energy. 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 She also has plans and wants to incorporate more friends to increase her socialization. She states that she does not want to solely rely on her partner. She has plans today to exercise, work out, and do some stretching or yoga. She also plans to reward herself by going to [employer] and eating her favorite vegan dessert. She denies suicidal ideation. We discussed the plans that she had previous to admission such as the roof on top of her building. She states that this is a cafeteria and she denies any plans or thoughts of suicide. She is forward thinking and has strong support from friends and her mother. She is considering staying with her mother the rest of the weekend through the weekend. MENTAL STATUS EXAM: Makenzie is well groomed, wearing casual clothing. She is pleasant and cooperative. She is talkative, answers questions fully in a calm manner. She is jovial at times. She is alert and oriented x3. She has full affect and good eye contact. Her speech is soft and articulate. Her concentration is good. Her memory is 3/3. Mood is "happy" and "worried." Thought process is logical, coherent, goal directed. Thought content is negative for SI or HI. She denies AH or VH. She denies rituals, obsessions, or delusions. Her insight is good, her judgment is good, and her fund of knowledge is excellent. DISCHARGE INSTRUCTIONS: Given to the patient. MEDICATIONS: Are as follows: 1. Depakote 500 mg 2 tabs p.o. at bedtime. 2. Gabapentin 300 mg b.i.d. and also 300 mg p.o. daily x1 p.r.n. anxiety. 3. Latuda 40 mg q. evening. 4. Quetiapine 12.5 mg p.o. at bedtime p.r.n. 5. Hydroxyzine 25 mg p.o. daily p.r.n. anxiety. She denies the need for electronic prescriptions at this time as she has supply from previous admission. We also discussed the importance of not having more than 1 month's supply at a time at the most. She agrees to discuss this further with her psychiatrist and therapist as well as her domestic partner. DIET: Vegan and regular. ACTIVITY: Ambulation as tolerated. Tobacco cessation declined by patient There are no pending labs or diagnostic studies at the time of discharge. FOLLOWUP CARE: Makenzie will return to [facility]. She has an appointment with her therapist at 3 p.m. after discharge with Brian Muñoz. She will follow up with her psychiatrist, Dr. Stafford or with Dr. Byrd as Dr. Stafford is on vacation next week. HOSPITAL COURSE: A. Reason for admission: The patient came to the emergency department after an appointment with her psychiatrist at [place] due to suicidal ideation and specific plans. She had been discharged [place] [facility] weeks prior and reported increased depression since discharge. She did not identify specific triggers or stressors. B. Psychiatric treatment rendered: Makenzie was admitted to the behavioral service unit on voluntary status. Her code status was full. Observation was initially every 15 minutes, then increased to constant observation while awake due to active suicidal ideation and attempt to suicide via polydipsia. Latuda was decreased to 40 mg due to sedative effect and gabapentin was decreased due to sedative effect. Over the weekend, she was monitored closely and participated fully in unit programming. This week, depressive symptoms lessened. She completed a personality disorder questionnaire, the PDQ-4, and did not score for any axis II disorders. She denied suicidal ideation since Saturday morning, which was October 27. She reported improved energy and motivation. She identified that the mental health unit was somewhat aggravating. She was concerned about being in a mixed state. We increased her gabapentin for agitation and mood stabilization. The following day, she reported improvement in agitation and identified that it was environmental. Over the weekend, constant observation was discontinued by covering psychiatrist. Observation was increased to 30 minutes and she was allowed staff pass per her request. Makenzie expressed readiness for discharge and with plan to do so in middle of the week. Makenzie was safe on all checks. She denied suicidal ideation. She denied auditory or visual hallucinations. She was bright and euthymic. Her presentation appeared to be much improved. She was discharged by nursing staff and was picked up by a close friend of hers. GRAYSON STEWART, BRANDON [id number]/CPS #: [id number] CIARAN
== END 2016-10-31 12:10 | disposition home or self-care (01) | DRG 885 ==
LOC: ED 13:31 → BSU 19:12
PROVIDERS: ADMIT Psychiatry & Neurology Psychiatry; ATTEND Psychiatry & Neurology Psychiatry
DX: F31.9 Bipolar disorder, unspecified (principal); R45.851 Suicidal ideations; F43.10 Post-traumatic stress disorder, unspecified; Z79.899 Other long term (current) drug therapy; Z62.810 Personal history of physical and sexual abuse in childhood; Z88.5 Allergy status to narcotic agent; Z81.1 Family history of alcohol abuse and dependence
CPT/HCPCS: 36415; 80053; 80164; 80171; 80307; 80320; 80329; 81003; 84443; 84702; 85025; 90832; 90853; 99222; 99231; 99232; 99238; A9270-GY; G0480

== ENCOUNTER 2018-07-30 22:56 | Emergency (ER) | payer OTHER ==
--- OUTSIDE RECORDS SUMMARY | 2018-07-30 23:10 | XMS REPORT | Continuity of Care Document ---
:1990 External Reference #:[id number] Author Name Yecenia Green Care Team Providers Name Role Phone Norman Gaona MD Care Team Information Secretary Board Of Commissioners Unavailable Payers Date Identification Numbers Payment Provider Subscriber Policy Number: [id number] [employer] Student Ins Makenzie Av[employer]ia PayID: [id number] [address] [place] [address] Advance Directives Description No Information Available Problems Description No Information Family History Description No Information Available Social History Type Date Description Comments Sex Unknown Tobacco Use Start: Unknown End: Unknown Patient is a former smoker Smoking Status Reviewed: 07/23/18 Patient is a former smoker Allergies, Adverse Reactions, Alerts Active Allergies Reaction Severity Comments Date Valproic Acid 07/14/2018 Codeine 07/14/2018 Oxycodone 07/14/2018 Medications Active Medications SIG Qnty Indications Ordering Provider Date [place] Carbonate one tab twice a 90caps F30.13 Norman Gaona MD 07/23/2018 300mg day for one day Capsules then three times a day Quetiapine Fumarate 1 tab by mouth 30tabs G47.00 Norman Gaona MD 07/21/2018 every night 50mg Tablets before bedtime. Latuda 1 tab a day 30tabs Norman Gaona MD 40mg Tablets Mirena (52 MG) Unknown 20mcg/24HR IUD History Medications Quetiapine Fumarate take 1 tab at 30tabs G47.00 Norman Gaona MD 07/14/2018 - night starting 07/21/2018 25mg Tablets 07/20/18 Venlafaxine HCL 1 by mouth every Unknown - 37.5mg day(end date 07/20/2018 Tablets 5/5/19) Immunizations Description No Information Available Vital Signs Date Vital Result Comment 07/23/2018 1:24pm Weight 128.00 lb Heart Rate 76 /min BP Systolic 142 mmHg BP Diastolic 80 mmHg Respiratory Rate 18 /min Pain Level 0 07/14/2018 1:58pm Height 63 inches 5'3" Weight 126.00 lb Heart Rate 74 /min BP Systolic 132 mmHg BP Diastolic 88 mmHg Respiratory Rate 16 /min Body Temperature 97.7 F Pain Level 0 O2 % BldC Oximetry 99 % BMI (Body Mass Index) 22.3 kg/m2 Results Description No Information Available Procedures Description No Information Available Encounters Type Date Location Provider Dx Diagnosis Office Visit 06/18/2018 [facility] Cristobal Hamilton, R55 Syncope and 9:01a danny Richardson M.D. collapse R21 Rash and other nonspecific skin eruption Office Visit 06/08/2018 [facility] Dawn Soria, R00.0 Tachycardia, 9:19a danny Richardson M.D. unspecified Hospitalists Plan of Treatment Future Appointment(s):07/28/2018 8:20 am - Vera Madden DO at [facility]11/13/2018 8:30 am - [facility]09/08/2018 9:20 am - Norman Gaona MD at [facility]07/23/2018 - Norman Gaona MDF30.13 Manic episode, severe, without psychotic symptomsNew Medication:[place] Carbonate 300 mg - one tab twice a day for one day then three times a dayNew Labs:[place], Ordered: 07/23/18Comments: Please call [facility] as soon as possible. Stay hydrated. If your smitha gets worse please go to [place] right away.Follow up:1 week.G47.00 Insomnia, unspecified
--- OUTSIDE RECORDS SUMMARY | 2018-07-30 23:10 | XMS REPORT | Continuity of Care Document ---
:1990 External Reference #:[id number] Author Name Yecenia Green Care Team Providers Name Role Phone Norman Gaona MD Care Team Information Brothel Keeper Unavailable Payers Date Identification Numbers Payment Provider Subscriber Policy Number: [id number] [employer] Student Ins Makenzie Av[employer]ia PayID: [id number] [address] [place] [address] Advance Directives Description No Information Available Problems Description No Information Family History Description No Information Available Social History Type Date Description Comments Sex Unknown Tobacco Use Start: Unknown End: Unknown Patient is a former smoker Smoking Status Reviewed: 07/14/18 Patient is a former smoker Allergies, Adverse Reactions, Alerts Active Allergies Reaction Severity Comments Date Valproic Acid 07/14/2018 Codeine 07/14/2018 Oxycodone 07/14/2018 Medications Active Medications SIG Qnty Indications Ordering Provider Date Quetiapine Fumarate Take 1 tab at 30tabs G47.00 Norman Gaona MD 07/14/2018 night starting 25mg Tablets 07/20/18 Latuda 1 tab a day Unknown 40mg Tablets Venlafaxine HCL 1 by mouth every Unknown 37.5mg day(end date Tablets 07/20/18) Mirena (52 MG) Unknown 20mcg/24HR IUD Immunizations Description No Information Available Vital Signs Date Vital Result Comment 07/14/2018 1:58pm Height 63 inches 5'3" Weight [...] Location Provider Dx Diagnosis Office Visit 06/18/2018 [facility] Cristobal Hamilton, R55 Syncope and 9:01a danny Richardson M.D. collapse R21 Rash and other nonspecific skin eruption Office Visit 06/08/2018 [facility] Dawn Soria, R00.0 Tachycardia, 9:19a danny Richardson M.D. unspecified Hospitalists Plan of Treatment Future Appointment(s):09/08/2018 9:20 am - Norman Gaona MD at [facility]07/14/2018 - Norman Gaona MDF31.9 Bipolar disorder, unspecifiedComments:Continue latuda (please call us for refills). Wean off the venlafaxine. Establish with TCM. Follow-up in 8 weeks or sooner as needed.G47.00 Insomnia, unspecifiedNew Medication:Quetiapine Fumarate 25 mg - Take 1 tab at night starting 07/20/18B97.7 Papillomavirus as the cause of diseases classified elsewhereReferral:Jonnathan Fitzpatrick MD, auto crane driver/Phys/Osteo
--- OUTSIDE RECORDS SUMMARY | 2018-07-30 23:10 | XMS REPORT | Continuity of Care Document ---
:1990 External Reference #:[id number] Author Name Yecenia Green Care Team Providers Name Role Phone Norman Gaona MD Care Team Information Mortgage Loan Officer Originator Unavailable Payers Date Identification Numbers Payment Provider Subscriber Policy Number: [id number] [employer] Student Ins Makenzie Av[employer]ia PayID: [id number] [address] [place] [address] Advance Directives Description No Information Available Problems Description No Information Family History Description No Information Available Social History Type Date Description Comments Sex Unknown Tobacco Use Start: Unknown End: Unknown Patient is a former smoker Smoking Status Reviewed: 07/28/18 Patient is a former smoker Allergies, Adverse Reactions, Alerts Active Allergies Reaction Severity Comments Date Valproic Acid 07/14/2018 Codeine 07/14/2018 Oxycodone 07/14/2018 Medications Active Medications SIG Qnty Indications Ordering Provider Date [place] Carbonate one tab twice a 90caps F30.13 [...] Unknown - 37.5mg day(end date 07/20/2018 Tablets 07/20/18) Immunizations Description No Information Available Vital Signs Date Vital Result Comment 07/28/2018 8:35am Weight 128.00 lb Heart Rate 72 /min BP Systolic 126 mmHg BP Diastolic 82 mmHg Respiratory Rate 16 /min Pain Level 0 07/23/2018 1:24pm Weight 128.00 lb Heart Rate [...] Date Location Provider Dx Diagnosis Office Visit 07/23/2018 [facility] Norman Gaona MD F30.13 Manic episode, 1:00p [facility] severe, without psychotic symptoms G47.00 Insomnia, unspecified Office Visit 06/18/2018 9:01a [facility] Cristobal Hamilton, R55 Syncope and Assoc,pc M.D. collapse Hospitalists R21 Rash and other nonspecific skin eruption Office Visit 06/08/2018 [facility] Dawn Hohn, R00.0 Tachycardia, 9:19a Assoc,pc M.D. unspecified Hospitalists Plan of Treatment Future Appointment(s):11/13/2018 8:30 am - Jonnathan Fitzpatrick MD at [facility]09/08/2018 9:20 am - Norman Gaona MD at [facility]07/28/2018 - Vera Madden DOF30.13 Manic episode, severe, without psychotic symptomsRecommendations:Dr. Webb is ordering a higher dose of Latuda to be started [facility] will call you with an appointment with an
[2018-07-30 23:32] LABS: Urine Appearance Clear; Urine Bilirubin Negative (Negative); Urine Blood Negative (Negative); Urine Color Colorless; Urine Glucose Negative (Negative); Urine Ketones Negative (Negative); Urine Nitrite Negative (Negative); Urine Protein Negative (Negative); Urine Specific Gravity 1.001 (1.010-1.030); Urine Urobilinogen Negative (Negative)
[2018-07-30 23:48] LABS: Urine Benzodiazepine Screen None Detected (None Detect); Urine Opiates Screen None Detected (None Detect)
[2018-07-31 00:06] LABS: ABS Eosinophils 0.4 10^3/ul (0-0.6); ABS Lymphocytes 2.6 10^3/ul (1.0-4.8); ABS Monocytes 0.8 10^3/ul (0-0.8); ABS Neutrophils 4.1 10^3/ul (1.5-7.7); Eosinophil % 5.6 %; Hematocrit 39 % (35-47); Hemoglobin 13.3 g/dL (12.0-16.0); Lymphocyte % 33.3 %; Mean Corpuscular HGB Conc 34 g/dL (31-36); Mean Corpuscular Hemoglobin 30 pg (27-31); Mean Corpuscular Volume 87 fL (80-97); Mean Platelet Volume 9.9 fL (7.4-10.4); Platelet Count 196 10^3/uL (150-450); Red Blood Count 4.48 10^6 /uL (3.70-4.87); Red Cell Distribution Width 14 % (10.5-15); White Blood Count 7.9 10^3/uL (3.5-10.8)
[2018-07-31 00:23] LABS: ALT 9 U/L (7-52); AST 14 U/L (13-39); Albumin 4.2 g/dL (3.2-5.2); Albumin/Globulin Ratio 1.8 (1-3); Alkaline Phosphatase 34 U/L (34-104); Anion Gap 5 mmol/L (2-11); BUN/Creatinine Ratio 14.3 (8-20); Blood Urea Nitrogen 11 mg/dL (6-24); C Reactive Protein 2.18 mg/L (<8.01); CO2 Carbon Dioxide 27 mmol/L (22-32); Calcium 9.4 mg/dL (8.6-10.3); Chloride 107 mmol/L (101-111); EGFR African American 107.2 (>60); EGFR Non-African American 88.6 (>60); Globulin 2.4 g/dL (2-4); Glucose 82 mg/dL (70-100); Potassium 3.8 mmol/L (3.5-5.0); Sodium 139 mmol/L (135-145); Total Protein 6.6 g/dL (6.4-8.9)
[2018-07-31 00:29] LABS: HCG Pregnancy < 0.60 mIU/mL
[2018-07-31 00:37] LABS: Alcohol < 10 mg/dL (<10); Lithium 0.68 mmol/L (0.6-1.2); Salicylate < 2.50 mg/dL (<30)
[2018-07-31 00:47] LABS: Acetaminophen < 15 mcg/mL
[2018-07-31 00:52] LABS: TSH (Thyroid Stimulating Horm) 4.15 mcIU/mL (0.34-5.60)
--- NOTE | 2018-07-31 01:25 | ED ---
Complex/Multi-Sys Presentation - HPI Summary HPI Summary: Patient complains of fatigue, blurred vision, weakness 2 hours. Patient concerned she has potential lithium toxicity, she has been on lithium 300 mg 3 times a day 1 week. Patient also states she was outside all day long in the sun, and did not hydrate. Patient states he almost fell asleep in the shower. Denies fever, cough, sore throat, CP, SOB, N/V/D, abdominal pain, change in urine, change in BM. Denies SI, HI. - History Of Current Complaint Chief Complaint: EDPsychosocial Time Seen by Provider: 07/30/18 23:23 Hx Obtained From: Patient Onset/Duration: Sudden Onset, Lasting Hours Timing: Intermittent, Lasting: Severity Currently: Moderate Severity Initially: Moderate Associated Signs And Symptoms: Positive: Weakness - Allergies/Home Medications Allergies/Adverse Reactions: Allergies Allergy/AdvReac Type Severity Reaction Status Date / Time codeine Allergy Intermediate Edema Verified 07/30/18 23:00 oxycodone Allergy Intermediate Edema Verified 07/30/18 23:00 Home Medications: Home Medications [place] Carbonate [[place] Carbonate 300 mg cap] 300 mg PO TID 07/31/18 [ History Confirmed 07/31/18] PMH/Surg Hx/FS Hx/Imm Hx Endocrine/Hematology History: Denies: Hx Anticoagulant Therapy Cardiovascular History: Denies: Hx Pacemaker/ICD Respiratory History: Reports: Hx Asthma - mild, occasional History: Denies: Hx Dialysis Sensory History: Denies: Hx Contacts or Glasses, Hx Hearing Aid Opthamlomology History: Denies: Hx Contacts or Glasses Neurological History: Denies: Hx Dementia Psychiatric History: Reports: Hx Anxiety, Hx Depression, Hx Post Traumatic Stress Disorder, Hx Inpatient Treatment, Hx Community Mental Health Tx, Hx Bipolar Disorder Denies: Hx Eating Disorder, Hx of Violent Episodes Against Others - Immunization History Date of Tetanus Vaccine: Up to date Date of Influenza Vaccine: Unknown Immunizations Up to Date: Yes Infectious Disease History: Yes Infectious Disease History: Denies: Traveled Outside the [place] in Last 30 Days - Family History Known Family History: Positive: Other - Depression - Social History Alcohol Use: Rare Alcohol Amount: about 8 beers on the weekend Hx Substance Use: No Substance Use Type: Reports: None Substance Use Comment - Amount & Last Used: unknown Hx Tobacco Use: Yes Smoking Status (MU): Never Smoked Tobacco Type: Cigarettes Amount Used/How Often: pt has not smoked or used any tobacco products in the last 30 days. Have You Smoked in the Last Year: No Review of Systems Constitutional: Negative Positive: Blurred Vision ENT: Negative Cardiovascular: Negative Respiratory: Negative Gastrointestinal: Negative Genitourinary: Negative Musculoskeletal: Negative Skin: Negative Neurological: Negative Psychological: Normal All Other Systems Reviewed And Are Negative: Yes Physical Exam - Summary Physical Exam Summary: Patient alert and oriented, speaking coherently, though answers are vague and nonspecific. Physical exam unremarkable. Abdomen soft nontender. Lung sounds clear to auscultation bilaterally. RRR. Patient ambulatory. Able to hold beverage container and drink fluids. Triage Information Reviewed: Yes Vital Signs On Initial Exam: Initial Vitals Temp Pulse Resp BP Pulse Ox 98.5 F 116 16 143/99 100 07/30/18 22:57 07/30/18 22:57 07/30/18 22:57 07/30/18 22:57 07/30/18 22:57 Vital Signs Reviewed: Yes Appearance: Positive: Well-Appearing Skin: Positive: Warm Head/Face: Positive: Normal Head/Face Inspection Eyes: Positive: Normal ENT: Positive: Normal ENT inspection Neck: Positive: Supple Respiratory/Lung Sounds: Positive: Clear to Auscultation Cardiovascular: Positive: Normal Abdomen Description: Positive: Nontender Musculoskeletal: Positive: Normal Neurological: Positive: Normal Psychiatric: Positive: Normal AVPU Assessment: Alert - [place] Coma Scale Best Eye Response: 4 - Spontaneous Best Motor Response: 6 - Obeys Commands Best Verbal Response: 5 - Oriented Coma Scale Total: 15 Diagnostics - Vital Signs Vital Signs Temp Pulse Resp BP Pulse Ox 07/31/18 00:13 67 18 111/69 98 07/31/18 00:00 84 18 99 07/30/18 23:43 91 23 131/90 98 07/30/18 23:15 98 17 99 07/30/18 23:14 87 24 121/79 98 07/30/18 22:57 98.5 F 116 16 143/99 100 - Laboratory Lab Results: Lab Results 07/30/18 07/30/18 07/31/18 Range/Units 23:18 23:18 00:00 WBC (3.5-10.8) 10^3/uL RBC (3.70-4.87) 10^6 /uL Hgb (12.0-16.0) g/dL Hct (35-47) % MCV (80-97) fL MCH (27-31) pg MCHC (31-36) g/dL RDW (10.5-15) % Plt Count (150-450) 10^3/uL MPV (7.4-10.4) fL Neut % (Auto) % Lymph % (Auto) % [place] % (Auto) % Eos % (Auto) % Baso % (Auto) % Absolute Neuts (auto) (1.5-7.7) 10^3/ul Absolute Lymphs (auto) (1.0-4.8) 10^3/ul Absolute Monos (auto) (0-0.8) 10^3/ul Absolute Eos (auto) (0-0.6) 10^3/ul Absolute Basos (auto) (0-0.2) 10^3/ul Absolute Nucleated RBC 10^3/ul Nucleated RBC % Sodium 139 (135-145) mmol/L Potassium 3.8 (3.5-5.0) mmol/L Chloride 107 (101-111) mmol/L Carbon Dioxide 27 (22-32) mmol/L Anion Gap 5 (2-11) mmol/L BUN 11 (6-24) mg/dL Creatinine 0.77 (0.51-0.95) mg/dL Est GFR ( Amer) 107.2 (>60) Est GFR (Non-Af Amer) 88.6 (>60) BUN/Creatinine Ratio 14.3 (8-20) Glucose 82 (70-100) mg/dL Calcium 9.4 (8.6-10.3) mg/dL Total Bilirubin 0.30 (0.2-1.0) mg/dL AST 14 (13-39) U/L ALT 9 (7-52) U/L Alkaline Phosphatase 34 (34-104) U/L C-Reactive Protein 2.18 (<8.01) mg/L Total Protein 6.6 (6.4-8.9) g/dL Albumin 4.2 (3.2-5.2) g/dL Globulin 2.4 (2-4) g/dL Albumin/Globulin Ratio 1.8 (1-3) TSH (0.34-5.60) mcIU/mL Beta HCG, Quant < 0.60 mIU/mL Urine Color Colorless Urine Appearance Clear Urine pH 7.0 (5-9) Ur Specific [place] 1.001 L (1.010-1.030) Urine Protein Negative (Negative) Urine Ketones Negative (Negative) Urine Blood Negative (Negative) Urine Nitrate Negative (Negative) Urine Bilirubin Negative (Negative) Urine Urobilinogen Negative (Negative) Ur Leukocyte Esterase Negative (Negative) Urine Glucose Negative (Negative) Salicylates (<30) mg/dL Urine Opiates Screen None detected (None Detect) Acetaminophen mcg/mL Ur Barbiturates Screen None detected (None Detect) Ur Phencyclidine Scrn None detected (None Detect) Ur Amphetamines Screen None detected (None Detect) U Benzodiazepines Scrn None detected (None Detect) [place] (0.6-1.2) mmol/L Urine Cocaine Screen None detected (None Detect) U Cannabinoids Screen None detected (None Detect) Serum Alcohol (<10) mg/dL 07/31/18 07/31/18 Range/Units 00:00 00:00 WBC 7.9 (3.5-10.8) 10^3/uL RBC 4.48 (3.70-4.87) 10^6 /uL Hgb 13.3 (12.0-16.0) g/dL Hct 39 (35-47) % MCV 87 (80-97) fL MCH 30 (27-31) pg MCHC 34 (31-36) g/dL RDW 14 (10.5-15) % Plt Count 196 (150-450) 10^3/uL MPV 9.9 (7.4-10.4) fL Neut % (Auto) 51.1 % Lymph % (Auto) 33.3 % S[place] % (Auto) 9.5 % Eos % (Auto) 5.6 % Baso % (Auto) 0.5 % Absolute Neuts (auto) 4.1 (1.5-7.7) 10^3/ul Absolute Lymphs (auto) 2.6 (1.0-4.8) 10^3/ul Absolute Monos (auto) 0.8 (0-0.8) 10^3/ul Absolute Eos (auto) 0.4 (0-0.6) 10^3/ul Absolute Basos (auto) 0.0 (0-0.2) 10^3/ul Absolute Nucleated RBC 0.0 10^3/ul Nucleated RBC % 0.0 Sodium (135-145) mmol/L Potassium (3.5-5.0) mmol/L Chloride (101-111) mmol/L Carbon Dioxide (22-32) mmol/L Anion Gap (2-11) mmol/L BUN (6-24) mg/dL Creatinine (0.51-0.95) mg/dL Est GFR ( Amer) (>60) Est GFR (Non-Af Amer) (>60) BUN/Creatinine Ratio (8-20) Glucose (70-100) mg/dL Calcium (8.6-10.3) mg/dL Total Bilirubin (0.2-1.0) mg/dL AST (13-39) U/L ALT (7-52) U/L Alkaline Phosphatase (34-104) U/L C-Reactive Protein (<8.01) mg/L Total Protein (6.4-8.9) g/dL Albumin (3.2-5.2) g/dL Globulin (2-4) g/dL Albumin/Globulin Ratio (1-3) TSH 4.15 (0.34-5.60) mcIU/mL Beta HCG, Quant mIU/mL Urine Color Urine Appearance Urine pH (5-9) Ur Specific [place] (1.010-1.030) Urine Protein (Negative) Urine Ketones (Negative) Urine Blood (Negative) Urine Nitrate (Negative) Urine Bilirubin (Negative) Urine Urobilinogen (Negative) Ur Leukocyte Esterase (Negative) Urine Glucose (Negative) Salicylates < 2.50 (<30) mg/dL Urine Opiates Screen (None Detect) Acetaminophen < 15 mcg/mL Ur Barbiturates Screen (None Detect) Ur Phencyclidine Scrn (None Detect) Ur Amphetamines Screen (None Detect) U Benzodiazepines Scrn (None Detect) [place] 0.68 (0.6-1.2) mmol/L Urine Cocaine Screen (None Detect) U Cannabinoids Screen (None Detect) Serum Alcohol < 10 (<10) mg/dL Result Diagrams: 07/31/18 00:00 07/31/18 00:00 Lab Statement: Any lab studies that have been ordered have been reviewed, and results considered in the medical decision making process. Complex Multi-Symp Course/Dx Course Of Treatment: Patient complains of fatigue, blurred vision, weakness 2 hours. Patient concerned she has potential lithium toxicity, she has been on lithium 300 mg 3 times a day 1 week. Patient also states she was outside all day long in the sun, and did not hydrate. Patient states he almost fell asleep in the shower. Denies fever, cough, sore throat, CP, SOB, N/V/D, abdominal pain , change in urine, change in BM. Denies SI, HI. Physical exam:Patient alert and oriented, speaking coherently, though answers are vague and nonspecific. Physical exam unremarkable. Abdomen soft nontender. Lung sounds clear to auscultation bilaterally. RRR. Patient ambulatory. Able to hold beverage container and drink fluids. Vital signs within normal limits. Labs unremarkable. Patient felt better after some hydration. States she was out in the sun all day long without drinking any fluids. Patient refused IV fluids. Advised to go home and continue hydrating. Patient understands and improves with plan. Patient also has follow-up appointment with psychologist next week. - Diagnoses Provider Diagnoses: Dehydration Discharge - Sign-Out/Discharge Documenting (check all that apply): Patient Departure Patient Received Moderate/Deep Sedation with Procedure: No - Discharge Plan Condition: Stable Disposition: HOME Patient Education Materials: Dehydration (ED) Referrals: No Primary Care Phys,NOPCP [Primary Care Provider] - [facility] [Outside] Additional Instructions: Continue to hydrate. Follow-up with primary care. Return to the ED for any new or worsening symptoms. - Billing Disposition and Condition Condition: STABLE Disposition: Home
[2018-07-31 02:04] VITALS: BP 115/68
== END 2018-07-31 01:45 | disposition home or self-care (01) ==
LOC: ED 22:56
DX: E86.0 Dehydration (principal); R53.83 Other fatigue; H53.8 Other visual disturbances; R53.1 Weakness; Z88.6 Allergy status to analgesic agent; F43.10 Post-traumatic stress disorder, unspecified; X58.XXXA Exposure to other specified factors, initial encounter
CPT/HCPCS: 36415; 80053; 80178; 80307; 80320; 80329; 81003; 84443; 84702; 85025; 86140; 99283; G0480